=== PATIENT | female | born 1995 | race Hispanic/Latino ===

== ENCOUNTER 2017-10-27 21:19 | Emergency (ER) | payer OTHER ==
[2017-10-27 21:30] VITALS: RESP 16; O2SAT 98
[2017-10-27] MEDS ORDERED: Valproate 500 MG in Sodium Chloride 0.9% 100 ML IVPB ONE (22:16)
[2017-10-27] MEDS ORDERED: DiphenhydrAMINE 50 mg/ml Inj IVP STA (22:18)
[2017-10-27] MEDS ORDERED: DiphenhydrAMINE 50 mg/ml Inj ONE (22:46)
--- NOTE | 2017-10-27 22:46 | C.PDOC ---
History Of Present Illness 22 year old female with a history of chronic migraines presents to the emergency department with complaints of a headache. Patient reports that her migraines have decreased in frequency since she started taking Topamax. Patient states that her headache started on the left side of her frontal lobe, and she states she took Motrin which provided no relief. Patient confirms nausea and photophobia but denies fevers, chills, or other associated migraine symptoms. Patient reports she was seen at an urgent care facility where she was recommended to take Toradol IM, but the patient states it makes her pain worse. She was advised to come to the ED by DR Jimenez. Time Seen by Provider: 10/27/17 21:58 Chief Complaint (Nursing): Headache History Per: Patient History/Exam Limitations: no limitations Onset/Duration Of Symptoms: Hrs Current Symptoms Are (Timing): Still Present Quality: Aching Preceeding Symptoms: Known Migraine Symptoms. denies: Visual Disturbances Associated Symptoms: Photophobia, Nausea Past Medical History Reviewed: Historical Data, Nursing Documentation, Vital Signs Vital Signs: Last Vital Signs Temp 98.1 F 10/27/17 21:27 Pulse 77 10/27/17 21:27 Resp 16 10/27/17 21:27 BP 111/77 10/27/17 21:27 Pulse Ox 98 10/27/17 23:02 - Medical History PMH: Migraine Surgical History: No Surg Hx Family History: States: No Known Family Hx - Social History Hx Tobacco Use: No Hx Alcohol Use: Yes Hx Substance Use: No Review Of Systems Constitutional: Negative for: Fever, Chills Gastrointestinal: Positive for: Nausea Neurological: Positive for: Headache, Other (photophobia) Physical Exam - Physical Exam Appears: Non-toxic, No Acute Distress Head: Atraumatic, Normacephalic Eye(s): bilateral: Normal Inspection Neck: Normal, Supple Cardiovascular: Rhythm Regular Respiratory: Normal Breath Sounds Gastrointestinal/Abdominal: Normal Exam, Soft, No Tenderness Neurological/Psych: Oriented x3 ED Course And Treatment O2 Sat by Pulse Oximetry: 98 (RA) Pulse Ox Interpretation: Normal Progress Note: Plan: Benadryl 50mg IVP. Zofran 4mg IV. Solu-Medrol 250mg IVP. Depacon 500mg INJ. NaCl IV Fluids Reevaluation Time: 23:53 Reassessment Condition: Improved (Still with mild discomfort. Toradol 30mg IV ordered) - Physician Consult Information Physician Contacted: Sidney Jimenez Outcome Of Conversation: Since patient stated Toradol IM worsened pain, Dr. Jimenez suggested administering an IV cocktail. Disposition Counseled Patient/Family Regarding: Studies Performed, Diagnosis, Need For Followup - Disposition Referrals: Sidney Jimenez MD [Staff Provider] - Disposition: HOME/ ROUTINE Disposition Time: 23:54 Condition: IMPROVED Instructions: Migraine Headache (DC) Forms: [employer] (Upper Sorbian) - Clinical Impression Clinical Impression: Status migrainosus - Scribe Statement The provider has reviewed the documentation as recorded by the Scribe (Ney Michael) Provider Attestation: All medical record entries made by the Scribe were at my direction and personally dictated by me. I have reviewed the chart and agree that the record accurately reflects my personal performance of the history, physical exam, medical decision making, and the department course for this patient. I have also personally directed, reviewed, and agree with the discharge instructions and disposition.
[2017-10-28 00:16] VITALS: BP 110/76; PULSE 80; TEMP 98
== END 2017-10-28 00:15 | disposition home or self-care (01) ==
LOC: C.ER 21:19
DX: G43.901 Migraine, unspecified, not intractable, with status migrainosus (principal)
CPT/HCPCS: 96365; 96375; 99284; J1200; J1885; J2405; J2930

== ENCOUNTER 2017-12-29 16:57 | Emergency (ER) | payer OTHER ==
[2017-12-29 17:25] VITALS: RESP 18; TEMP 98.5
[2017-12-29] MEDS ORDERED: Sodium Chloride 0.9% 1,000 ML IV ONE (17:58)
[2017-12-29] MEDS ORDERED: Sodium Chloride 0.9% 1,000 ML ONE (18:04)
[2017-12-29 18:21] LABS: BASO # 0.1 K/uL (0.0-0.2); BASO % 0.6 % (0.0-2.0); EOS # 0.1 K/uL (0.0-0.7); EOS % 0.8 % (0.0-4.0); LYMPH # 3.1 K/uL (1.0-4.3); MEAN CELL VOLUME 87.7 fL (81.0-99.0); MEAN CORPUSCULAR HEMOGLOBIN 29.8 pg (27.0-31.0); MEAN CORPUSCULAR HGB CONC 33.9 g/dL (33.0-37.0); MEAN PLATELET VOLUME 7.6 fL (7.2-11.7); MONO # 0.7 K/uL (0.0-0.8); MONO % 6.9 % (0.0-10.0); NEUT # 5.6 K/uL (1.8-7.0); NEUT % 58.7 % (50.0-75.0); RBC 4.36 Mil/uL (3.80-5.20); RED CELL DISTRIBUTION WIDTH 13.4 % (11.5-14.5); WHITE BLOOD COUNT 9.5 K/uL (4.8-10.8)
[2017-12-29 18:28] LABS: SQUAMOUS EPITHIAL 1 /hpf (0-5); URINE BILIRUBIN NEGATIVE (NEGATIVE); URINE BLOOD NEGATIVE (NEGATIVE); URINE CLARITY Clear (Clear); URINE COLOR Straw (YELLOW); URINE GLUCOSE (UA) NORMAL (Normal); URINE LEUKOCYTE ESTERASE NEG Leu/uL (Negative); URINE PROTEIN NEGATIVE (NEGATIVE); URINE UROBILINOGEN NORMAL mg/dL (0.2-1.0)
[2017-12-29 18:34] LABS: ALB/GLOB RATIO 1.3 (1.0-2.1); ALBUMIN 4.2 g/dL (3.5-5.0); ALT/SGPT 24 U/L (9-52); AST/SGOT 20 U/L (14-36); BLOOD UREA NITROGEN 14 mg/dL (7-17); CALCIUM 9.7 mg/dl (8.6-10.4); GFR AFRICAN-AMERICAN > 60; GFR NON-AFRICAN AMERICAN > 60
--- NOTE | 2017-12-29 18:46 | C.PDOC ---
History Of Present Illness 22 year old female with history of Migraine presents to ED with complaints of left sided headache associated with photophobia and nausea for 4 days. Patient reports she recently switched neurologist and now sees Dr. Vasques. Patient states she saw Dr. Vasques yesterday and had medication refill, instructed to come to ED if symptoms did not improve. Patient denies vomiting, head injury or ear pain. Time Seen by Provider: 12/29/17 17:33 Chief Complaint (Nursing): Headache History Per: Patient History/Exam Limitations: no limitations Onset/Duration Of Symptoms: Days Current Symptoms Are (Timing): Still Present Past Medical History Reviewed: Historical Data, Nursing Documentation, Vital Signs Vital Signs: Last Vital Signs Temp 98.5 F 12/29/17 19:31 Pulse 78 12/29/17 19:31 Resp 18 12/29/17 19:31 BP 120/84 12/29/17 19:31 Pulse Ox 97 12/29/17 19:54 - Medical History PMH: Migraine Surgical History: No Surg Hx Family History: States: No Known Family Hx - Social History Hx Tobacco Use: No Hx Alcohol Use: Yes Hx Substance Use: No Review Of Systems Constitutional: Negative for: Fever, Chills Gastrointestinal: Positive for: Nausea. Negative for: Vomiting, Abdominal Pain Skin: Negative for: Rash Neurological: Positive for: Headache. Negative for: Weakness, Numbness Physical Exam - Physical Exam Appears: Non-toxic, No Acute Distress Skin: Warm, Dry, No Rash Head: Atraumatic, Normacephalic Eye(s): bilateral: Normal Inspection, PERRL, EOMI, Photophobia Ear(s): Bilateral: Normal Nose: Normal, No Flaring Oral Mucosa: Moist Neck: Supple Chest: Symmetrical Cardiovascular: Rhythm Regular, No JVD Respiratory: Normal Breath Sounds, No Rales, No Rhonchi, No Wheezing Gastrointestinal/Abdominal: Soft, No Tenderness, No Guarding, No Rebound Extremity: Bilateral: Atraumatic, Normal Color And Temperature, Normal ROM Neurological/Psych: Oriented x3, Normal Speech, Normal Cognition, Normal Cranial Nerves, No Cerebellar Signs, Normal Motor, Normal Sensation Gait: Steady ED Course And Treatment - Laboratory Results Result Diagrams: 12/29/17 18:17 12/29/17 18:17 O2 Sat by Pulse Oximetry: 97 (RA) Pulse Ox Interpretation: Normal Medical Decision Making Medical Decision Making: Impression: Migraine Headache Plan: * Labs * UA * IV NS * Reglan * Decadron Progress: Labs reviewed with no acute findings. Patient requests I contact her neurologist , although reports pain is improving [phone] Vasques answering service, he is not available and will await callback from covering neurologist Dr Rand 0 Page service again [phone] Patient is asking for discharge home. She reports feeling much better her headache has resolved and feels comfortable going home. She has no fever, no neurologic deficit, fever, or nuchal rigidity. atient was instructed to follow up with physician and neuro Disposition Counseled Patient/Family Regarding: Diagnosis, Need For Followup, Rx Given - Disposition Referrals: Cody Sanchez MD [Medical Doctor] - Disposition: HOME/ ROUTINE Disposition Time: 19:20 Condition: STABLE Additional Instructions: Follow up with your primary medical doctor or neurologist in 2-5 days for further evaluation. Take medications as prescribed. Return to the emergency department at any time if symptoms persist or worsen. 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 - Scribe Statement The provider has reviewed the documentation as recorded by the Scribalon Bermudez All medical record entries made by the Aduiibalon were at my direction and personally dictated by me. I have reviewed the chart and agree that the record accurately reflects my personal performance of the history, physical exam, medical decision making, and the department course for this patient. I have also personally directed, reviewed, and agree with the discharge instructions and disposition.
[2017-12-29 19:33] VITALS: BP 120/84; PULSE 78
[2017-12-29 19:52] VITALS: O2SAT 97
== END 2017-12-29 19:32 | disposition home or self-care (01) ==
LOC: C.ER 16:57
DX: G43.909 Migraine, unspecified, not intractable, without status migrainosus (principal)
CPT/HCPCS: 80053; 81001; 85025; 96361; 96374; 96375; 99284; J1100; J2765; J7030